=== PATIENT | female | born 1995 | race Caucasian/White ===

== ENCOUNTER 2017-06-04 18:36 | Emergency (ER) | payer OTHER ==
[2011-07-25 07:53] VITALS: BMI 41.1
[2017-06-04 19:50] LABS: BASOPHILS 0.2 % (0-2); EOSINOPHILS 2.2 % (0-7); HEMATOCRIT 45.4 % (36.0-48.0); HEMOGLOBIN 15.3 g/dL (12-16); IMMATURE GRANULOCYTES 0.4 % (0-5); LYMPHOCYTES 16.1 % (15-50); MCH 29.1 pg (26.0-34.0); MCHC 33.7 g/dL (31.0-37.0); MCV 86.5 fL (80.0-100.0); MONOCYTES 4.9 % (2-11); NEUTROPHILS 76.2 % (40-80); PLATELET COUNT 228 10x3/uL (130-400); RBC 5.25 10x6/uL (4.00-5.40); RDW 13.4 % (11.5-14.5); WBC 10.9 10x3/uL (4.8-10.8)
[2017-06-04 20:01] LABS: HCG SERUM POSITIVE (NEGATIVE)
[2017-06-04 20:08] LABS: ALBUMIN 4.2 g/dL (3.4-5.0); ALKALINE PHOSPHATASE 90 U/L (46-116); ALT (SGPT) 35 U/L (10-68); BILIRUBIN - TOTAL 0.23 mg/dL (0.2-1.3); CALC OSMOLALITY 275 mosm/kg (275-300); CARBON DIOXIDE 24.6 mmol/L (21.0-32.0); CHLORIDE - SERUM 102 mmol/L (98-107); CREATININE - SERUM 0.7 mg/dL (0.6-1.3); GLUCOSE 91 mg/dL (74-106); POTASSIUM - SERUM 3.7 mmol/L (3.5-5.1); PROTEIN - SERUM 8.6 g/dL (6.4-8.2); SODIUM 138 mmol/L (136-145); UREA NITROGEN 12 mg/dL (7-18); eGFR NON AFRICAN AMERICAN > 90 mL/min (90-120)
[2017-06-04 21:30] LABS: HCG - QUANTITATIVE (MATERNAL) 0 mIU/mL
[2017-06-04 21:53] LABS: APPEARANCE CLEAR (CLEAR); BILIRUBIN NEGATIVE (NEGATIVE); COLOR STRAW (YELLOW); GLUCOSE NEGATIVE (NEGATIVE); KETONE NEGATIVE (NEGATIVE); NITRITE NEGATIVE (NEGATIVE); PROTEIN NEGATIVE (NEGATIVE); SPECIFIC GRAVITY 1.005 (1.005-1.020); UROBILINOGEN NORMAL (NORMAL)
[2017-06-04 21:56] LABS: BACTERIA FEW /hpf (NONE SEEN); EPITHELIAL CELLS 0-5 /hpf (0-5); RED CELLS - URINE OCC /hpf (0-5); WHITE CELLS - URINE OCC /hpf (0-5)
[2017-06-04 21:57] LABS: TALC POWDER CRYSTALS OCC /hpf (NONE SEEN)
[2017-06-07 03:14] LABS: CHLAMYDIA TRACHOMATIS, NAA Negative (Negative)
== END 2017-06-04 22:30 | disposition home or self-care (01) ==
LOC: D.ER 18:36
PROVIDERS: Family Medicine
DX: N93.9 Abnormal uterine and vaginal bleeding, unspecified (principal); N28.9 Disorder of kidney and ureter, unspecified

== ENCOUNTER → 2017-10-12 20:10 | Outpatient (CLI) | payer OTHER ==
[2011-07-25 07:53] VITALS: BMI 41.1
== END | disposition home or self-care (01) ==
LOC: D.LDO 20:10
DX: O26.892 Other specified pregnancy related conditions, second trimester (principal); Z3A.23 23 weeks gestation of pregnancy; R10.30 Lower abdominal pain, unspecified; R35.0 Frequency of micturition; R30.0 Dysuria

== ENCOUNTER 2018-10-01 16:11 | Inpatient (IN) | payer MEDICAID ==
[~2018-10-01] VITALS: Ht 162.6 cm; Wt 128.8 kg
--- NOTE | ~2018-10-01 | HEMODYNAMI ---
PATIENT:CELIA PACK MEDICAL RECORD: [id number] : [birth year] [facility] [id number] [id number] ADMISSION DATE: 10/01/18 Generatedon:10/03/20189:56 Patient name: CELIA PACK Patient #: [id number] SSN: DO B: 1995 Date of study: 10/03/2018 Page: Of Hemodynamic Procedure Report Patient Data Patient Demographics Procedure consent was obtained First Name: CELIA Gender: Female Last Name: SIRENA : 1995 Patient #: [id number] Age: 23 year(s) Race: Unknown Additional ID: [id number] Contact details [address]: [address] [place] [address] rd State: [place] City: [place] Zip code: [address] Past Medical History Allergies: No known allergies Admission Admission Data Admission Date: 10/01/2018 Admission Time: 22:33 Room #: [id number] Procedure Procedure Types Cath Procedure Peripheral Cath Diagnostic Procedure Nephro Nephrostomy Tubes Procedure Description Procedure Date Procedure Date: 10/03/2018 Procedure Start Time: 9:21 Procedure Staff Name Function Tdedy Gifford MD Performing Physician MARIAM RAHMAN RT Monitor Alberto Minor RT Scrub Yani Gonzalez RN Nurse Rose Larson RN Nurse Sean Juares NIPPING MACHINE OPERATOR Additional personnel Procedure Medications Medication Administration Route Dosage Heparin Flush Bag added to field 2 bags (1000units/500ml NS) Lidocaine 1% added to field 20 Hemodynamics Rest Pre Cath Intra NCS Post Cath Medications Time Medication Route Dose Verified Delivered Reason Notes Effec tiveness by by 8:53:06 Heparin Flush added 2 M Rosemarie Gifford used for Bag to bags MD GOVEA procedure (1000units/500ml field NS) 8:53:19 Lidocaine 1% added 20ml Teddy Gifford for local to vial MD GOVEA anesthetic field Procedure Log Time Note 8:42:46 Alberto Minor RT (R) (CV) sent for patient. Start room use. 8:42:47 Time tracking: Regular hours (M-F 7:00 - 5:00) 8:42:53 Plan of Care:Hemodynamics will remain stable., Cardiac rhythm will remain stable., Comfort level will be maintained., Respiratory function will remain adequate., Patient/ family verbilizes understanding of procedure., Procedure tolerated without complication., Recovers from procedure without complications.. 8:43:01 Patient received from Labor and Delivery to IR Alert and oriented. Transferred to table in Prone position. 8:43:03 Signed procedure consent form obtained from patient. 8:43:07 Warm blankets applied, and ken hugger turned on for patient comfort. 8:43:07 Correct patient and procedure confirmed by team. 8:43:09 ECG and BP/O2 sat monitors applied to patient. 8:43:11 8:48:05 H&P Date Dictated: 10/02/2018 Within 30 days and on chart.. 8:48:19 Pre-procedure instructions explained to patient. 8:48:20 Pre-op teaching completed and patient verbalized understanding. 8:48:22 Family in waiting room. 8:48:26 Patient NPO since Midnight. 8:48:46 Patient allergic to No known allergies 8:48:48 Is the patient allergic to Iodine/contrast media? No. 8:49:30 ----see anethesia note for Pre-sedation anethsthesia assessment.---- 8:49:50 8:50:18 IV patent on arrival in left wrist with 0.9% NaCl at KVO. 8:53:06 Heparin Flush Bag (1000units/500ml NS) 2 bags added to field was administered by Teddy Gifford MD; used for procedure; 8:53:19 Lidocaine 1% 20ml vial added to field was administered by Teddy Gifford MD; for local anesthetic; 9:10:23 Right Thoracic & Lumbar was prepped with chlora-prep and draped in sterile fashion. 9:10:25 Alarms reviewed by R. N. 9:10:26 Sharps counted by scrub and verified by R.N. 9:13:21 Use device set IR Diagnostic 9:13:23 Bag Decanter () opened to sterile field. 9:13:24 Sterile Angiographic Pack opened to sterile field. 9:13:24 Tegaderm 4 x 4 (1626W) opened to sterile field. 9:13:43 KIT, INTRODUCER ACCUSTICK II W/C ([id number]) opened to sterile field. 9:15:45 Physician arrived 9:18:08 --------ALL STOP TIME OUT------ 9:21:23 Lumbar site verified by team. 9:21:30 Procedure started. 9:21:31 Full Disclosure recording started 9:28:10 CHIBA 22 X 15 needle opened to sterile field. 9:37:07 STOPCOCK 3-Way Large Bore ([id number]) opened to sterile field. 9:37:24 DILATOR, VESSEL 8/20 opened to sterile field. 9:37:25 Abscession 8Fr drainage catheter ([id number]) opened to sterile field. 9:39:51 BAG, DRAINAGE EMPTY 600ML W/CHET ([id number]) opened to sterile field. 9:54:33 Procedure ended.(Physican Out) 9:54:46 Sharps counted by scrub and verified by R.N. 9:54:57 Post Lumbar area:clean and dry 9:55:04 Procedure and supply charges have been captured, reviewed, submitted and are correct. 9:55:25 Patient transfered to Labor and Delivery with Bed. 9:56:20 End room use (Document Last) Device Usage Item Name Manufacture Quantity Catalog Hospital Part Current Minima l Lot# / Number Charge Number Stock Stock Serial# Code Bag Decanter Microtek 1 [id number] 5 () Cat [employer] Sterile Cardinal 1 [id number] 5 Angiographic Health Pack Tegaderm 4 x 3M 1 1626W [id number] 765043 [id number] 5 4 (1626W) KIT, [place] 1 [id number] 423431 478904 [id number] 5 INTRODUCER Scientific ACCUSTICK II W/C ([id number]) CHIBA 22 X [facility] 1 [id number] 534708 277344 5 [id number] 15 needle STOPCOCK [facility] 1 [id number] 963765 1211 568061 [id number] 3-Way Large Bore ([id number]) DILATOR, [facility] 1 [id number] 199507 38459 890221 5 VESSEL 10/09 Abscession Angiodynamics 1 [id number] 086167 900682 641437 5 8Fr drainage catheter ([id number]) BAG, [facility] 1 [id number] 612229 882462 981066 5 DRAINAGE EMPTY 600ML W/CHET ([id number]) Signature Audit [place] Stage Time Signature Unsigned Intra-Procedure 10/03/2018 MARIAM RAHMAN RT 9:56:40 AM (R) Signatures Monitor : MARIAM RAHMAN RT Signature : Date : Time : [id number] [facility] [place] [address]
[2018-10-01] MEDS ORDERED: PRENAVITE1 TAB PO (17:34)
[2018-10-01] MEDS ORDERED: PHENERGAN25 M1 PO (17:34)
[2018-10-01 18:15] LABS: BASOPHILS 0.1 % (0-2); EOSINOPHILS 0.1 % (0-7); HEMATOCRIT 38.7 % (36.0-48.0); HEMOGLOBIN 13.7 g/dL (12-16); IMMATURE GRANULOCYTES 0.3 % (0-5); LYMPHOCYTES 7.2 % (15-50); MCH 29.8 pg (26.0-34.0); MCHC 35.4 g/dL (31.0-37.0); MCV 84.1 fL (80.0-100.0); MEAN PLATELET VOLUME 9.9 fL (7.4-10.4); MONOCYTES 6.1 % (2-11); NEUTROPHILS 86.2 % (40-80); PLATELET COUNT 227 10x3/uL (130-400); RDW 13.8 % (11.5-14.5); WBC 15.5 10x3/uL (4.8-10.8)
[2018-10-01 18:29] LABS: ALBUMIN 2.7 g/dL (3.4-5.0); ALKALINE PHOSPHATASE 185 U/L (46-116); ALT (SGPT) 13 U/L (10-68); BILIRUBIN - TOTAL 0.55 mg/dL (0.2-1.3); CALC OSMOLALITY 271 mosm/kg (275-300); CALCIUM 8.6 mg/dL (8.5-10.1); CARBON DIOXIDE 17.1 mmol/L (21.0-32.0); CHLORIDE - SERUM 102 mmol/L (98-107); CREATININE - SERUM 0.7 mg/dL (0.6-1.3); GLUCOSE 93 mg/dL (74-106); POTASSIUM - SERUM 3.3 mmol/L (3.5-5.1); PROTEIN - SERUM 7.3 g/dL (6.4-8.2); SODIUM 137 mmol/L (136-145); UREA NITROGEN 7 mg/dL (7-18); eGFR NON AFRICAN AMERICAN > 90 mL/min (90-120)
[2018-10-01 18:59] LABS: AMYLASE - SERUM 65 U/L (25-115); HCG - QUANTITATIVE (MATERNAL) 28522 mIU/mL; LIPASE 289 U/L (73-393)
--- NOTE | 2018-10-01 19:00 | NUR ---
SBAR BEDSIDE REPORT REC'D FROM LUCRECIA AT THIS TIME.
[2018-10-01 19:04] VITALS: BP 119/69
[2018-10-01 19:10] LABS: APPEARANCE CLEAR (CLEAR); BILIRUBIN NEGATIVE (NEGATIVE); COLOR DK YELLOW (YELLOW); GLUCOSE NEGATIVE (NEGATIVE); KETONE LARGE mg/dL (NEGATIVE); NITRITE NEGATIVE (NEGATIVE); PROTEIN 1+ mg/dL (NEGATIVE)
[2018-10-01 19:11] LABS: RED CELLS - URINE 0-5 /hpf (0-5)
[2018-10-01 19:12] LABS: BACTERIA FEW /hpf (NONE SEEN); MUCUS >1+ /lpf (NONE SEEN)
[2018-10-01 20:33] VITALS: BP 100/55
[2018-10-01 21:18] VITALS: BP 118/61
--- NOTE | 2018-10-01 21:25 | NUR ---
FHT OBTAINED, RLQ, 130BPM. MOTHER AT BEDSIDE. DENIES NEEDS AT THIS TIME.
--- NOTE | 2018-10-01 22:15 | NUR ---
PT AMBULATE TO RESTROOM AT THIS TIME. STANDBY ASSIST PROVIDED. MOM AT BEDSIDE.
[2018-10-01 23:21] VITALS: BP 111/47; Ht 162.6 cm; Wt 128.8 kg
[2018-10-02 07:20] VITALS: BP 104/46
--- NOTE | 2018-10-02 07:20 | NUR ---
ASSESSMENT PER FLOW SHEET, VS OBTAINED, PT C/O OF IV, IV LEFT FRONT WRIST INTACT WITH NO REDNESS OR EDEMA INFUSING VIA PUMP D5NS AT 125 ML/HR, DILAUDID CLINICAL TRIALS NURSE FOR PAIN MANAGEMENT PER MD ORDERS, SEE EMAR, PT REPORTS FLATUS, BM THIS MORNING AND VOIDING WITH NO DIFFICULTY, PT INS TO USE [place] HAT WHEN VOIDING, PT VERBALIZES UNDERSTANDING, ENC TO DRINK PLENTY OF H20, SERVED FRESH H20, POC DISCUSSED WITH PT REGARDING STARTING NEW IV AND CONS WITH DR PLASCENCIA, PT AND PT'S MOM VERBALIZES UNDERSTANDING, DENIES FURTHER NEEDS AT THIS TIME
--- NOTE | 2018-10-02 07:48 | NUR ---
PT BUSINESS PERFORMANCE ADVISOR LIGHT, C/O NAUSEA, ADM ZOFRAN SIVP PER MD ORDERS
--- NOTE | 2018-10-02 07:58 | NUR ---
RACHAEL HERNADEZ IV ACCESS NURSE NOTIFIED REGARDING NEW IV
[2018-10-02 08:01] LABS: BASOPHILS 0.1 % (0-2); EOSINOPHILS 0.5 % (0-7); HEMATOCRIT 31.6 % (36.0-48.0); IMMATURE GRANULOCYTES 0.4 % (0-5); LYMPHOCYTES 9.3 % (15-50); MCH 28.8 pg (26.0-34.0); MCHC 33.5 g/dL (31.0-37.0); MCV 85.9 fL (80.0-100.0); MEAN PLATELET VOLUME 9.7 fL (7.4-10.4); MONOCYTES 7.3 % (2-11); NEUTROPHILS 82.4 % (40-80); PLATELET COUNT 201 10x3/uL (130-400); RBC 3.68 10x6/uL (4.00-5.40); RDW 14.3 % (11.5-14.5); WBC 13.4 10x3/uL (4.8-10.8)
--- NOTE | 2018-10-02 08:03 | NUR ---
THIS RN AND RACHAEL HERNADEZ ACCESS NURSE TO ROOM, RACHAEL HERNADEZ REPORTS SHE STARTED NEW IV IN RIGHT HAND, FIRST ATTEMPT
[2018-10-02 08:06] LABS: HEMOGLOBIN 10.6 g/dL (12-16)
--- NOTE | 2018-10-02 08:25 | NUR ---
THIS RN TO ROOM, IV IN LEFT FRONT WRIST CONVERTED TO SALINE LOCK, FLUIDS STARTED IN RIGHT HAND
[2018-10-02 08:44] LABS: ALKALINE PHOSPHATASE 128 U/L (46-116); BILIRUBIN - TOTAL 0.44 mg/dL (0.2-1.3); CALC OSMOLALITY 278 mosm/kg (275-300); CALCIUM 7.5 mg/dL (8.5-10.1); CHLORIDE - SERUM 107 mmol/L (98-107); CREATININE - SERUM 0.8 mg/dL (0.6-1.3); GLUCOSE 100 mg/dL (74-106); POTASSIUM - SERUM 3.5 mmol/L (3.5-5.1); PROTEIN - SERUM 6.3 g/dL (6.4-8.2); SODIUM 141 mmol/L (136-145); UREA NITROGEN 6 mg/dL (7-18); eGFR NON AFRICAN AMERICAN > 90 mL/min (90-120)
[2018-10-02 08:45] LABS: ALBUMIN 1.9 g/dL (3.4-5.0); ALT (SGPT) 9 U/L (10-68); CARBON DIOXIDE 22.8 mmol/L (21.0-32.0)
--- NOTE | 2018-10-02 08:45 | NUR ---
DR PLASCENCIA'S OFFICE NOTIFIED FOR CONS
--- NOTE | 2018-10-02 08:55 | NUR ---
NEW VIAL OF DILAUDID HUNG FOR HONING MACHINE SET UP OPERATOR PER MD ORDERS, SEE EMAR
--- NOTE | 2018-10-02 09:06 | NUR ---
MANE FREEDMAN IVPB PER MD ORDERS, SEE EMAR, PT DENIES NEEDS AT THIS TIME
--- NOTE | 2018-10-02 09:48 | NUR ---
PT MOSQUITO SPRAYER LIGHT, THIS RN TO ROOM, IV BEEPING, IV IS POSTIONAL, IV INTACT WITH NO REDNESS OR EDEMA, PT INST TO LEAVE HAND SLIGHTLY BENT DOWN ON PILLOW, PT VERBALIZES UNDERSTANDING, RATES PAIN 4/10, PT REPORTS VOIDING, EMPTIED 250 MLS OF DARK CLOUDY URINE FROM [place] MARTINE[place], PT DENIES NEEDS
--- NOTE | 2018-10-02 10:17 | NUR ---
CALLED TO ROOM TO CHECK URINE. PT MOTHER ASSISTED PT TO BATHROOM AND BACK TO BED. VOIDED 100 ML CLEAR MOD YELLOW URINE. LAYING IN BED CRYING, REMINDED TO PUSH SOFT HAT BINDER CONTROLLER PRN FOR PAIN. SIDE RAILS UP X 2, CALL LIGHT IN REACH.
--- NOTE | 2018-10-02 10:20 | NUR ---
PT CALLS TO ROOM C/O MARTINEZ, REQUESTING IV BE MOVED BACK TO OTHER ARM. STATES "I HAVE A HEADACHE AND EVERYTIME THAT BEEPER GOES OFF IT HURTS MY HEAD. IT HAPPENS EVERYTIME I TRY TO SLEEP." WILL CONTACT
--- NOTE | 2018-10-02 10:28 | NUR ---
DR DAVEY PAGED, WAITING ON RETURN CALL. Catrachito MERAZ, PATIENT'S PRIMARY RN NOTIFIED THAT PT DESIRES IV TO BE PLACED BACK IN OTHER ARM.
--- NOTE | 2018-10-02 10:37 | NUR ---
PAGED DR DAVEY TO REPORT PT MARTINEZ NOT RELIEVED BY DILAUDID.
--- NOTE | 2018-10-02 11:10 | NUR ---
PTS MOM AT DIGITAL MANAGER, REPORTS PT WOULD LIKE ICE WATER, PROVIDED 2 CUPS OF ICE WATER AND APPLE JUICE
[2018-10-02 11:19] VITALS: BP 105/48
--- NOTE | 2018-10-02 11:19 | NUR ---
BAG NS HUNG VIA PUMP TO INFUSE AT 125 ML/HR PER MD ORDERS, SEE EMAR, VS OBTAINED, PT DENIES NEEDS AT THIS TIME, PT'S MOM AT BEDSIDE
--- NOTE | 2018-10-02 12:45 | NUR ---
CO NAUSEA- REQUESTING NAUSEA MED. NO EMESIS. NOTED THAT IV IN LT WRIST INFILTRATED. IV FLUIDS RETURNS TO RT WRIST AND ZOFRAN GIVEN.
--- NOTE | 2018-10-02 13:00 | NUR ---
DR DAVEY HERE TO SEE PT.
--- NOTE | 2018-10-02 13:00 | NUR ---
DR DAVEY ON UNIT, ORDERS RECEIVED FOR TYLENOL 650 MG PO Q6H PRN C/O MARTINEZ
--- NOTE | 2018-10-02 13:13 | NUR ---
IV BEEPING, MARICARMEN, NAILING MACHINE OPERATOR AUTOMATIC NURSE STARTED ANOTHER IV IN LEFT HAND DUE TO PT'S COMPLAINTS OF IV IN RIGHT HAND BEEPING AND HURTING, FLUIDS INFUSING IN LEFT HAND AT THIS TIME, ADM TYLENOL PER MD ORDERS, SEE LUCIR, PT REQUESTED AND SERVED L[place]ON SA[place]-SUIATTLE SODA, DENIES FURTHER NEEDS
--- NOTE | 2018-10-02 13:46 | NUR ---
PT PARAPROFESSIONAL AIDE LIGHT, PT REPORTS VOIDING, EMPTIED 250 MLS OF DARK YELLOW URINE, PT PUSHES MAT PUNCHER BUTTON AT THIS TIME, DENIES NEEDS, FAMILY AT BEDSIDE
--- NOTE | 2018-10-02 14:26 | NUR ---
PT ON CELL PHONE, DENIES NEEDS AT THIS TIME, PT'S MOM AT BEDSIDE ON HER CELL PHONE
--- NOTE | 2018-10-02 14:37 | NUR ---
PT LAYING IN BED, HOLDING , VISITING WITH FAMILY, REQUESTED AND SERVED FRESH H20, DENIES NEEDS OR PAIN AT THIS TIME
--- NOTE | 2018-10-02 14:50 | NUR ---
DR PLASCENCIA TO ROOM FOR EVALUATION, TALKS TO PT REGARDING STENT PLACEMENT TODAY, PT VERBALIZES UNDERSTANDING, QUESTIONS ANSWERED PER DR PLASCENCIA
[2018-10-02 15:09] VITALS: BP 115/46
--- NOTE | 2018-10-02 15:09 | NUR ---
SURGICAL CHECKLIST AND LATEX ALLERGY COMPLETED
--- NOTE | 2018-10-02 15:19 | NUR ---
WENT OVER CONSENTS WITH PT, PT VERBALIZES UNDERSTANDING, CONSENTS SIGNED AND WITNESSED
--- NOTE | 2018-10-02 15:33 | NUR ---
MANE FREEDMAN IVPB PER MD ORDERS, SEE EMAR
--- NOTE | 2018-10-02 16:00 | NUR ---
PT IS GOING TO TRY AND GET A LITTLE REST, SCD SLEEVES APPLIED, FAMILY IS GOING TO STEP OUT FOR A FEW MINUTES
--- NOTE | 2018-10-02 16:30 | NUR ---
PT RESTING WITH EYES CLOSED, RESP QUIET, NO DISTRESS NOTED, LEFT UNDISTURBED AT THIS TIME
--- NOTE | 2018-10-02 16:44 | NUR ---
ANESTHESIA TO ROOM
--- NOTE | 2018-10-02 17:10 | NUR ---
PT OCCUPATIONAL SAFETY AND HEALTH MANAGER LIGHT, THIS RN TO ROOM, PT REPORTS THAT SALINE LOCK IN RIGHT HAND IS SWELLING, UPON EVALUATION, SALINE LOCK IN RIGHT HAND IS INTACT WITH NO REDNESS OR EDEMA AT THIS TIME, PT DENIES FURTHER NEEDS, FAMILY IN ROOM
--- NOTE | 2018-10-02 18:14 | NUR ---
PT RESTING WITH EYES CLOSED, RESP QUIET, NO DISTRESS NOTED, LEFT UNDISTURBED AT THIS TIME, S/O AT BEDSIDE
--- NOTE | 2018-10-02 19:12 | NUR ---
SURGERY CALLED TO REQUEST THAT PATIENT RECIEVE HER PRE-OP MEDS. MEDICATION ADMINISTERED PER ORDERS AT THIS TIME.
--- NOTE | 2018-10-02 20:01 | NUR ---
PT TO SURGERY VIA STRETCHER AT THIS TIME
--- NOTE | 2018-10-02 21:30 | NUR ---
PT BACK FROM SURGERY AT THIS TIME. PT VOMITING, EMESIS BAG AND COOL RAG PROVIDED. PT URINATED ON SELF DURING VOMITING. PT AMBULATED WITH ASSISTANCE TO BATHROOM, VOIDED 100ML CLEAR URINE, PT CLEANED SELF UP AND CLEAN GOWN PROVIDED.
--- NOTE | 2018-10-02 21:36 | NUR ---
DR MCGREGOR NOTIFIED OF PT VOMITING, NEW ORDERS NOTED FOR PHENERGAN 25 MG SLOW IVP NOW AND REGLAN 10MG IV Q6HRS.
--- NOTE | 2018-10-02 21:50 | NUR ---
PATIENT AMBULATED BACK TO BED WITH ASSISTANCE
[2018-10-02 21:53] VITALS: BP 121/56
--- NOTE | 2018-10-02 21:53 | NUR ---
VITAL SIGNS TAKEN, PULSE OX 94% ON 2LITERS VIA NC. SIGNIFICANT OTHER AT BEDSIDE. BED LOCKED IN LOW POSITION, SIDE RAILS UPX2, CALL LO AND TRAY TABLE IN REACH.
--- NOTE | 2018-10-02 22:13 | NUR ---
PHENERGAN 25MG SLOW IVP OVER TEN MINUTES PER MD ORDERS FOR NAUSEA.
--- NOTE | 2018-10-02 22:17 | NUR ---
ZOSYN 3.375 IN 50ML D5W HUNG VIA ALARIS PUMP AT THIS TIME PER MD ORDERS, SEE EMAR
--- NOTE | 2018-10-02 22:50 | NUR ---
REGLAN 10MG SLOW IVP PER MD ORDERS. PT O2 SAT AT 95%. DENIES NEEDS AT THIS TIME. WILL CONTINUE TO MONITOR
[2018-10-03] VITALS (11 sets, daily range): BP systolic 94–123; BP diastolic 49–84
--- NOTE | 2018-10-03 00:15 | NUR ---
PT RESTING QUIETLY WITH EYES CLOSED, SIGNIFICANT OTHER REMAINS AT BEDSIDE FOR SUPPORT. NO NEEDS IDENTIFIED, WILL CONTINUE TO MONITOR.
--- NOTE | 2018-10-03 01:15 | NUR ---
PT RESTING QUIETLY WITH EYES CLOSED, NO DISTRESS NOTED. SIGNIFICANT OTHER REMAINS AT BEDSIDE AND STATES THAT HE HELPED THE PT TO THE BATHROOM. 500ML YELLOW URINE NOTED IN URINE HAT. NO FURTHER NEEDS IDENTIFIED, WILL CONTINUE TO MONITOR.
--- NOTE | 2018-10-03 02:15 | NUR ---
PT SLEEPING, EASILY AROUSED TO VERBAL, NO NEEDS IDENTIFIED. NEW BAG 1000ML NS @125ML/HR INFUSING VIA ALARIS PUMP PER MD ORDERS.
--- NOTE | 2018-10-03 04:25 | NUR ---
PATIENT RESTING QUIETLY AT THIS TIME, NEW IN PROCESSING INSTRUCTOR VIAL PLACED IN PUMP AT THIS TIME, SEE EMAR.
--- NOTE | 2018-10-03 04:37 | NUR ---
REGLAN 10MG ADMINISTERED AT THIS TIME PER MD ORDERS. SEE EMAR
--- NOTE | 2018-10-03 04:38 | NUR ---
OXYGEN REMOVED, PULSE OX REMAINS AT 97%.
--- NOTE | 2018-10-03 06:30 | NUR ---
PT SLEEPING WITH EVEN RESPIRATIONS, NO DISTRESS NOTED. SIGNIFICANT OTHER REMAINS AT BEDSIDE FOR SUPPORT. WILL CONTINUE TO MONITOR
--- NOTE | 2018-10-03 06:55 | NUR ---
CALLED TO ROOM BY PATIENT AT THIS TIME TO EMPTY URINE HAT. 900ML BLOODY URINE EMPTIED AT THIS TIME. PT BACK TO BED WITH EYES CLOSED.
--- NOTE | 2018-10-03 07:15 | NUR ---
RECEIVED PT LYING SUPINE IN BED. WAKES UPON VERBAL STIMULATION. VSS. HRRR WITHOUT AUDIBLE MURMUR. BBS CLEAR. BS X 4. ABDOMEN SOFT. NEG HOMANS' SIGN. PPP. MILD NON-PITTING EDEMA NOTED TO ALL EXTREMETIES. PIV OF NS INFUSING AT 125 ML/HR. SITE CLEAR TO LEFT HAND. DILAUDID WELCOME DESK AGENT INFUSING ORDERED. PT STATES PAIN OF "2" ON 0-10 PAIN SCALE. STATES PAIN MED RELIEVING PAIN. SR UP X 2. CALL LIGHT IN REACH.
--- NOTE | 2018-10-03 08:05 | NUR ---
RACHAEL MURILLO FROM INTERVENTIONAL RADIOLOGY DEPT CALLS. STATES DR RENEE TO PERFORM PROCEDURE ON PT AND ORDERS PLACED IN [facility] FOR PREOP/CONSENT. STATES DR RENEE WILL EXPLAIN PROCEDURE TO PT WHEN PT ARRIVES TO DEPT.
--- NOTE | 2018-10-03 08:20 | NUR ---
CONSENTS EXPLAINED TO AND SIGNED BY PT. PT REQUESTS DR RENEE TO SPEAK WITH PT ABOUT PROCEDURE PRIOR TO IT. RADIOLOGY STAFF REAASURRED THIS NURSE THAT WOULD HAPPEN AFTER PT ARRIVES TO RADIOLOGY DEPT.
--- NOTE | 2018-10-03 08:28 | OP ---
PATIENT NAME: CELIA PACK MEDICAL RECORD: [id number] :[birth year] LOCATION:[facility] [id number] ADMISSION DATE:10/01/18 SURGEON: ROSALES PLASCENCIA MD DATE OF OPERATION: 10/02/2018 DATE OF SERVICE: 10/02/2018 SURGEON: Rosales Plascencia MD ANESTHESIA: General anesthesia by Sathya Smyth CRNA. DIAGNOSES: Right pyelonephritis, right hydronephrosis, the patient is 13 weeks . PROCEDURE: Cystoscopy, attempted right ureteral stent placement. FINDINGS: Ultrasound showed a grossly hydronephrotic right kidney without any parenchyma. When I had the Sensor wire into the renal pelvis, pus came out of the kidney. However, there is a ureteral obstruction that prevents me from being able to place a stent up the ureter. The bladder was inflamed with single ureteral orifices bilaterally. No bladder tumors were seen. ESTIMATED BLOOD LOSS: None. CLINICAL HISTORY: This is a 23-year-old female, G2, P1, A0, who is 13 weeks . She was admitted to this hospital after a 1-week history of right flank pain with fevers and nausea and vomiting. She has an ultrasound, which shows gross hydronephrosis on the right kidney with minimal parenchyma. At age 14, she had right-sided pyelonephritis and she was told at [facility] that she had a nonfunctioning right kidney. At the present time, blood and urine cultures have been obtained. She is on IV Rocephin. I am bringing her to the OR to try to attempt a right ureteral stent insertion. DESCRIPTION OF PROCEDURE: The patient was given induction of general anesthesia. She was placed into lithotomy position and prepped and draped. A 21-Greenlandic cystoscope with 30-degree lens was used for visualization. She has single ureteral orifices on each side. An open-ended ureteral catheter was placed into the right ureteral orifice. Through the lumen of the catheter, we inserted the Sensor wire. Once the Sensor wire was up into the renal pelvis, we removed the ureteral catheter, leaving the wire in place. It was immediately apparent that pus was coming out of the kidney around the Sensor wire. I wanted to get a culture of the urine from the renal pelvis. Therefore, over the wire, I inserted the open-ended ureteral catheter; however, at some point in the ureter I encountered a resistance that would not allow the open-ended ureteral catheter to advance any further. Therefore, I had to abandon this attempt. We then removed the ureteral catheter, leaving the wire in place. A 24 cm ureteral stent was then put over the wire. As we were trying to advance the ureteral stent up the ureter, we again encountered the obstruction. The site of the obstruction could not be visualized with ultrasound. I could not advance the stent past this obstruction. We therefore have to abandon any further attempts from below. The wire and the stent were completely removed and the bladder was emptied through the cystoscope sheath and then the scope was removed. I will set her up for interventional radiology to place a nephrostomy tube tomorrow and hopefully they can place an antegrade stent later on. 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 TRANSINT:[id number] Voice Confirmation ID: [id number] DOCUMENT ID: [id number] ROSALES PLASCENCIA MD at 0828 CC: [id number] DICTATION DATE: 10/02/182053 FILLER BLOCK INSERTER REMOVER: 10/02/182240 ADM IN [facility] [address] [id number]
--- NOTE | 2018-10-03 08:38 | NUR ---
STAFF FROM INTERVENTIONAL RADIOLOGY HERE. VISITS WITH PT. PT TO RADIOLOGY DEPT VIA BED PER RADIOLOGY STAFF. SO GOES WITH PT.
[2018-10-03 08:59] LABS: CALC OSMOLALITY 271 mosm/kg (275-300); CALCIUM 7.8 mg/dL (8.5-10.1); CHLORIDE - SERUM 105 mmol/L (98-107); CREATININE - SERUM 0.7 mg/dL (0.6-1.3); GLUCOSE 89 mg/dL (74-106); POTASSIUM - SERUM 3.8 mmol/L (3.5-5.1); SODIUM 138 mmol/L (136-145); UREA NITROGEN 5 mg/dL (7-18); eGFR NON AFRICAN AMERICAN > 90 mL/min (90-120)
[2018-10-03 09:11] LABS: BASOPHILS 0 % (0-2); EOSINOPHILS 0 % (0-7); HEMATOCRIT 33.7 % (36.0-48.0); HEMOGLOBIN 11.6 g/dL (12-16); IMMATURE GRANULOCYTES 0.3 % (0-5); LYMPHOCYTES 5.7 % (15-50); MCH 29.1 pg (26.0-34.0); MCHC 34.4 g/dL (31.0-37.0); MCV 84.5 fL (80.0-100.0); MEAN PLATELET VOLUME 9.4 fL (7.4-10.4); PLATELET COUNT 257 10x3/uL (130-400); RBC 3.99 10x6/uL (4.00-5.40); RDW 13.5 % (11.5-14.5); WBC 11.5 10x3/uL (4.8-10.8)
[2018-10-03 09:17] LABS: APTT 34.8 SECONDS (22.8-39.4); INR 1.09 (0.85-1.17); PROTIME 13.6 SECONDS (11.6-15.0)
[2018-10-03 10:17] LABS: APPEARANCE CLOUDY (CLEAR); BACTERIA MODERATE /hpf (NONE SEEN); BILIRUBIN NEGATIVE (NEGATIVE); COLOR YELLOW (YELLOW); EPITHELIAL CELLS RARE /hpf (0-5); GLUCOSE NEGATIVE (NEGATIVE); KETONE SMALL mg/dL (NEGATIVE); MUCUS <1+ /lpf (NONE SEEN); NITRITE NEGATIVE (NEGATIVE); PROTEIN 2+ mg/dL (NEGATIVE); UROBILINOGEN NORMAL (NORMAL); WHITE CELLS - URINE >50 /hpf (0-5)
--- NOTE | 2018-10-03 10:56 | NUR ---
Miroslava - JUVENAL BEDOYA RN AT BEDSIDE FOR FHT. FHT 130 BPM.
--- NOTE | 2018-10-03 11:18 | NUR ---
RECEIVED PT FROM VIA BED TO ROOM 1278. BED LOCKED AND PLACED IN LOW POSITION. VSS. PT AWAKE. AAO X 3. HRRR WITHOUT AUDIBLE MURMUR. BBS CLEAR. ABDOMEN SOFT. SCDS ON BLE. PUMP ON. NEPHROSTOMY BAG TO GRAVITY WITH THICK, BLOODY LIQUID NOTED IN BAG. DRESSING TO RIGHT FLANK WITHOUT DRAINAGE NOTED. PIV OF NS INFUSING AT 125 ML/HR TO LEFT HAND. SITE CLEAR. DILAUDID BLOOD BANK LABORATORY TECHNOLOGIST RECONNECTED AND RX ORDERED. BLOOD BANK LABORATORY TECHNOLOGIST BUTTON IN PT REACH. CALL LIGHT IN REACH. O2 ON PER N/C AT 2 LITERS. SR UP X 2. CALL LIGHT IN REACH. PT C/O MILD NAUSEA. NO EMESIS NOTED AT THIS TIME. SO AT BEDSIDE.
--- NOTE | 2018-10-03 12:15 | NUR ---
PT STATES HAS URGE TO VOID. PT OOB AND AMB TO BR. STEADY GAIT. VOIDS FREELY. SMALL AMT OF URINE NOTED ON CHUX ON BED. PT STATES HAD ACCIDENT WHILE COUGHING EARLIER. PERICARE DONE PER PT. GOWN CHANGED. BED PADS CHANGED.
--- NOTE | 2018-10-03 12:30 | NUR ---
PT DENIES NAUSEA. ASKING IF PT CAN HAVE LIQUIDS OR FOOD. WILL ASK DR PLASCENCIA.
--- NOTE | 2018-10-03 13:28 | NUR ---
VOICEMAIL LEFT WITH DR PLASCENCIA.
--- NOTE | 2018-10-03 13:29 | NUR ---
DR PLASCENCIA RETURNS CALL. NOTIFIED OF PT REQUEST FOR DIET ORDER. ORDER RECEIVED.
--- NOTE | 2018-10-03 14:30 | NUR ---
PT SITTING UP IN BED. CONSUMING SANDWICH TRAY. DENIES NAUSEA OR NEEDS.
--- NOTE | 2018-10-03 15:28 | NUR ---
PT AMBULATES TO BR. VOIDS 300 ML OF YELLOW URINE. PT BACK TO BED. MEJIA ACTIVITY WELL. FRESH ICE WATER PROVIDED TO PT.
--- NOTE | 2018-10-03 15:45 | NUR ---
DR DAVEY VISITS WITH PT.
--- NOTE | 2018-10-03 16:45 | NUR ---
DILAUDID BRANCH CHIEF DC'D. NORCO 10/325 GIVEN PO ORDERED FOR PT C/O RIGHT FLANK PAIN OF "6" ON 0-10 PAIN SCALE. PT INSTRUCTED ON MED. VERBALIZES UNDERSTANDING.
--- NOTE | 2018-10-03 18:14 | NUR ---
REGLAN 10 MG GIVEN SIVP OVER 2 MINUTES. ZOSYN ALSO UP ORDERED.
--- NOTE | 2018-10-03 19:00 | NUR ---
REPORT RECEIVED FROM HOLLI CANO
--- NOTE | 2018-10-03 19:45 | NUR ---
PATIENT SITTING UP IN BED. STATES PAIN 4 OUT OF 10. ASSESSMENT AND VITAL SIGNS DONE AT THIS TIME. RESPIRATIONS AT EASE. LUNG SOUNDS CLEAR IN ALL SO. HEART REGULAR RATE AND RHYTHM. GRAVID ABDOMEN SOFT AND NONTENDER. BOWEL SOUNDS PRESENT IN ALL QUADRANTS. NEPHROSTOMY TUBE TO R FLANK. DRESSING INTACT. 90 MLS OF THICK BLOODY PURULENT FLUID EMPTIED. EDEMA NOTED TO BLE. SCD'S ON BLE, ON AND WORKING. PATIENT ASSISTED TO BR. AMBULATED WITH STEADY GAIT. VOIDED 150 ML'S OF SUE COLOR URINE. AMBULATED BACK TO BED WITH STEADY GAIT. SCD'S REAPPLIED. IV TO L HAND. IV INFUSING NS@ 125ML/HR. NO REDNESS OR EDEMA NOTED TO SITE. PATIENT DENIES ANY NEEDS OR CONCERNS. BED IN LOWEST POSITION, SIDE RAILS UP X 2, C/L AND WATER WITHIN REACH.
--- NOTE | 2018-10-03 21:00 | NUR ---
PATIENT SITTING UP IN BED WATCHING TV. AT BEDSIDE. DENIES ANY NEEDS OR CONCERNS AT THIS TIME. BED IN LOWEST POSITION, SIDE RAILS UP X 2, C/L AND WATER WITHIN REACH.
--- NOTE | 2018-10-03 22:21 | NUR ---
PATIENT SITTING UP IN BED. STATES PAIN 7 OUT OF 10. PRN PERCOCET 10/325 ADMINISTERED PO AT THIS TIME. PATIENT ASSISTED TO BR. VOIDED 200 CC'S OF YELLOW URINE. PATIENT AMBULATTED BACK TO BED WITH STEADY GAIT. DENIES ANY FURTHER NEEDS. BED IN LOWEST POSITION, SIDE RAILS UP X 2, C/L AND WATER WITHIN REACH.
--- NOTE | 2018-10-04 00:18 | NUR ---
PATIENT LYING QUIETLY IN BED WITH EYES CLOSED. EASILY AROUSED. SCHEDULED REGLAN 10 MG ADMINISTERED SLOW IVP. PATIENT DENIES FURTHER NEEDS. BED IN LOWEST POSITION, SIDE RAILS UP X 2, C/L AND WATER WITHIN REACH.
--- NOTE | 2018-10-04 01:07 | NUR ---
PATIENT LYING QUIETLY IN BED WITH EYES CLOSED. RESPIRATIONS AT EASE. ZOSYN 3.375 GM ADMINISTERED IVPB OVER 30 MINUTES AT THIS TIME. BED IN LOWEST POSITION, SIDE RAILS UP X 2, C/L AND WATER WITHIN REACH.
--- NOTE | 2018-10-04 03:00 | NUR ---
PATIENT LYING QUIETLY IN BED WITH EYES CLOSED. RESPIRATIONS AT EASE. DRAINED 10 ML'S OF BLOODY PURULENT FLUID FROM NEPHROSTOMY BAG. BED IN LOWEST POSITION, SIDE RAILS UP X 2, C/L AND WATER WITHIN REACH.
--- NOTE | 2018-10-04 04:15 | NUR ---
PATIENT LYING IN BED WITH EYES CLOSED. EASILY AROUSED. DENIES PAIN. FHT'S 150'S VIA DOPP;ER. DENIES ANY FURTHER NEEDS. BED IN LOWEST POSITION, SIDE RAILS UP X 2, C/L AND WATER WITHIN REACH.
[2018-10-04 05:24] VITALS: BP 98/54
--- NOTE | 2018-10-04 05:24 | NUR ---
PATIENT LYING QUIETLY IN BED WITH EYES CLOSED. EASILY AROUSED. VITAL SIGNS DONE AT THIS TIME. PATIENT DENIES ANY NEEDS AT THIS TIME. BED IN LOWEST POSITION, SIDE RAILS UP X 2, C/L AND WATER WITHIN REACH.
--- NOTE | 2018-10-04 05:40 | NUR ---
PATIENT SITTING UP IN BED. STATES PAIN 8 OUT OF 10. PRN NORCO 10/325 ADMINISTERED PO. PATIENT AMBULATED TO BATHROOM AND VOIDED 300 ML'S OF DARK YELLOW URINE, PATIEN AMBULATED BACK TO BED WITH STEADY GAIT. DENIES ANY FURTHER NEEDS. BED IN LOWEST POSITION, SIDE RAILS UP X 2, C/L AND WATER WITHIN REACH.
[2018-10-04 06:13] LABS: BASOPHILS 0.1 % (0-2); EOSINOPHILS 0.1 % (0-7); HEMATOCRIT 29.9 % (36.0-48.0); IMMATURE GRANULOCYTES 0.6 % (0-5); LYMPHOCYTES 10.8 % (15-50); MCH 28.6 pg (26.0-34.0); MCHC 33.4 g/dL (31.0-37.0); MCV 85.4 fL (80.0-100.0); MEAN PLATELET VOLUME 9.2 fL (7.4-10.4); NEUTROPHILS 82.4 % (40-80); PLATELET COUNT 234 10x3/uL (130-400); RDW 13.9 % (11.5-14.5); WBC 10.2 10x3/uL (4.8-10.8)
[2018-10-04 06:36] LABS: ALBUMIN 1.6 g/dL (3.4-5.0); ALKALINE PHOSPHATASE 194 U/L (46-116); BILIRUBIN - TOTAL 0.26 mg/dL (0.2-1.3); CALCIUM 7.5 mg/dL (8.5-10.1); CARBON DIOXIDE 22.9 mmol/L (21.0-32.0); CHLORIDE - SERUM 107 mmol/L (98-107); CREATININE - SERUM 0.7 mg/dL (0.6-1.3); POTASSIUM - SERUM 3.5 mmol/L (3.5-5.1); PROTEIN - SERUM 5.8 g/dL (6.4-8.2); SODIUM 140 mmol/L (136-145); eGFR NON AFRICAN AMERICAN > 90 mL/min (90-120)
[2018-10-04 06:38] LABS: ALT (SGPT) 19 U/L (10-68); CALC OSMOLALITY 278 mosm/kg (275-300); GLUCOSE 134 mg/dL (74-106); UREA NITROGEN 7 mg/dL (7-18)
[2018-10-04 07:26] VITALS: BP 105/51
--- NOTE | 2018-10-04 07:26 | NUR ---
RECEIVED PT LYING IN SEMI-VEGA'S POSITION IN BED. WAKES UPON VERBAL STIMULATION. VSS. HRRR WITHOUT AUDIBLE MURMUR. BBS CLEAR. BS X 4. ABDOMEN SOFT. NEPHROSTOMY TUBE TO RIGHT FLANK WITH DRAINAGE BAG TO GRAVITY DRAINING BLOODY LIQUID. DRESSING DRY WITHOUT DRAINAGE. NEG HOMANS' SIGN. PPP. MILD EDEMA NOTED TO BLE. PIV TO LEFT HAND CLEAR. PT STATES PAIN OF "2" TO RIGHT FLANK. STATES PAIN MEDICATION RELIEVING PAIN. SR UP X 2. CALL LIGHT IN REACH.
--- NOTE | 2018-10-04 08:04 | NUR ---
YESSICA HANSEN WITH RADIOLOGY VISITS WITH PT. DISCUSSES POC WITH PT.
--- NOTE | 2018-10-04 08:07 | NUR ---
PT UP TO BR TO VOID.
--- NOTE | 2018-10-04 08:45 | NUR ---
PIV TO LEFT HAND WITH EDEMA NOTED ABOVE SITE. NO REDNESS OR DRAINAGE NOTED. DC'D WITH CATHELON INTACT. PRESSURE BANDAGE TO SITE. PIV RESITED TO RIGHT WRIST WITH 22 GAUGE X 1 VENIPUNCTURE. NS INFUSING AT 125 ML/HR. SITE CLEAR. PT MEJIA WELL.
--- NOTE | 2018-10-04 09:00 | NUR ---
ORDER NOTED FOR NPO STATUS. PT INFORMED AND PT TO START NPO STATUS OF 0900.
--- NOTE | 2018-10-04 10:45 | NUR ---
REGULAR DIET ORDER NOTED PER DR PLASCENCIA. PT INFORMED.
--- NOTE | 2018-10-04 10:47 | NUR ---
DR PLASCENCIA HERE. VISITS WITH PT.
--- NOTE | 2018-10-04 10:56 | NUR ---
DR PLASCENCIA AT [facility]. STATES WILL DISCHARGE PT HOME AND TO RETURN TO HIS CLINIC IN 2 OR 4 WEEKS.
--- NOTE | 2018-10-04 11:20 | NUR ---
DR DAVEY NOTIFIED DR TEMO ENAMORADO WITH DISCHARGE TODAY AND TO FOLLOW UP IN HIS CLINIC IN 2 WEEKS. STATES WILL HAVE TO COME SEE PT AND WRITE RX FOR PT TO GO HOME WITH.
--- NOTE | 2018-10-04 11:48 | NUR ---
PT C/O RIGHT FLANK PAIN OF "8" ON 0-10 PAIN SCALE. NORCO 10/325 GIVEN PO ORDERED. PT INSTRUCTED ON MED. VERBALIZES UNDERSTANDING.
--- NOTE | 2018-10-04 12:17 | NUR ---
JADE CLARK NP WITH RADIOLOGY NOTIFIED OF ORDER FROM DR PLASCENCIA THAT OK WITH DISCHARGE. ORDERS RECEIVED AND STATES WILL CALL IN FLUSHES TO [facility] [address].
--- NOTE | 2018-10-04 12:45 | NUR ---
DR DAVEY ON UNIT. RX PROVIDED FOR AUGMENTIN AND NORCO 5. ORDER RECEIVED TO [facility].
--- NOTE | 2018-10-04 12:53 | NUR ---
NEPHROSTOMY TUBE FLUSHED WITH 10 ML NS. SO INSTRUCTED ON FLUSHING TUBE. VERBALIZES UNDERSTANDING AND WITNESSES DEMONSTRATION. INSTRUCTED ON EMPTYING BAG AND KEEPING LOG OF AMOUNTS.
[2018-10-04] MEDS ORDERED: HYDROCODON-ACE1 EAC7 PO (13:00)
[2018-10-04] MEDS ORDERED: AUGMENTIN 875-11 TAB PO (13:00)
--- NOTE | 2018-10-04 14:00 | NUR ---
PIV DC'D WITH CATHELON INTACT. PRESSURE BANDAGE TO SITE. PT GIVEN DISCHARGE INSTRUCTIONS. PT AND SO GIVEN ALL INSTRUCTIONS. SO INSTRUCTED ON DRESSING CARE AND FLUSHING TUBE WITH SALINE. SO VERBALIZES UNDERSTANDING. ALL SUPPLIES PROVIDED TO PT. PT INSTRUCTED TO DIRECTOR PRESALES SALINE FLUSHES AT [facility] [address].
--- NOTE | 2018-10-04 14:21 | NUR ---
PT READY FOR DISCHARGE. DISCHARGED IN STABLE CONDITION VIA WHEELCHAIR PER AUXILIARY STAFF TO PRIVATE VEHICLE.
== END 2018-10-04 14:21 | disposition home or self-care (01) | DRG 833 ==
LOC: D.ER 16:11 → D.LD 22:33
PROVIDERS: Family Medicine; Radiology Vascular & Interventional Radiology; Urology; ADMIT Obstetrics & Gynecology; ATTEND Obstetrics & Gynecology
PROC: 0TJB8ZZ Inspection of Bladder, Via Natural or Artificial Opening Endoscopic (ICD-10-PCS; principal; 2018-10-02 15:00)
PROC: 0T903ZZ Drainage of Right Kidney, Percutaneous Approach (ICD-10-PCS; 2018-10-03)
DX: O23.01 Infections of kidney in pregnancy, first trimester (principal); Z3A.13 13 weeks gestation of pregnancy; O99.211 Obesity complicating pregnancy, first trimester; E66.01 Morbid (severe) obesity due to excess calories; O99.341 Other mental disorders complicating pregnancy, first trimester

== ENCOUNTER 2018-10-08 13:22 | Emergency (ER) | payer MEDICAID ==
[~2018-10-08] VITALS: Ht 162.6 cm; Wt 129.1 kg
[~2018-10-08 13:22] MED LIST: AUGMENTIN 875-11 TAB PO; HYDROCODON-ACE1 EAC7 PO; PHENERGAN25 M1 PO; PRENAVITE1 TAB PO
[2018-10-08 13:39] VITALS: Ht 162.6 cm; Wt 129.1 kg
[2018-10-08 16:52] VITALS: BP 104/69
== END 2018-10-08 18:22 | disposition home or self-care (01) ==
LOC: D.ER 13:22
DX: T83.89XA Other specified complication of genitourinary prosthetic devices, implants and grafts, initial encounter (principal); O26.891 Other specified pregnancy related conditions, first trimester; Z3A.14 14 weeks gestation of pregnancy

== ENCOUNTER 2018-11-13 05:30 | Outpatient (CLI) | payer MEDICAID ==
[~2018-11-13] VITALS: Ht 162.6 cm; Wt 127.3 kg
[2018-11-13 06:38] LABS: BASOPHILS 0 % (0-2); EOSINOPHILS 1.4 % (0-7); HEMATOCRIT 36.6 % (36.0-48.0); HEMOGLOBIN 12.7 g/dL (12-16); IMMATURE GRANULOCYTES 0.3 % (0-5); LYMPHOCYTES 17.6 % (15-50); MCH 29.7 pg (26.0-34.0); MCHC 34.7 g/dL (31.0-37.0); MCV 85.5 fL (80.0-100.0); MEAN PLATELET VOLUME 9.8 fL (7.4-10.4); MONOCYTES 5.3 % (2-11); NEUTROPHILS 75.4 % (40-80); RBC 4.28 10x6/uL (4.00-5.40); RDW 14.3 % (11.5-14.5); WBC 8.7 10x3/uL (4.8-10.8)
[2018-11-13 06:45] LABS: PLATELET COUNT 165 10x3/uL (130-400)
[2018-11-13 06:51] VITALS: BP 115/71; Ht 162.6 cm; Wt 127.3 kg
[2018-11-13 06:56] LABS: APTT 28.2 SECONDS (22.8-39.4); INR 0.98 (0.85-1.17); PROTIME 12.4 SECONDS (11.6-15.0)
[2018-11-13 06:59] LABS: CALC OSMOLALITY 275 mosm/kg (275-300); CALCIUM 8.2 mg/dL (8.5-10.1); CARBON DIOXIDE 26.5 mmol/L (21.0-32.0); CHLORIDE - SERUM 103 mmol/L (98-107); CREATININE - SERUM 0.6 mg/dL (0.6-1.3); POTASSIUM - SERUM 3.7 mmol/L (3.5-5.1); SODIUM 139 mmol/L (136-145); UREA NITROGEN 10 mg/dL (7-18); eGFR NON AFRICAN AMERICAN > 90 mL/min (90-120)
[2018-11-13 07:01] LABS: GLUCOSE 86 mg/dL (74-106)
--- NOTE | 2018-11-13 10:12 | NUR ---
0945-BEDSIDE ULTRA SOUND AT THIS TIME. 1015-CLEANSE NEPHROSTOMY TUBE SITE WITH HIBICLEANSE, DRESS WITH DRY GUAZE AND TAPE APPLIED. AWAITING RADIOLOGIST CALL TO DISCHARGE PATIENT.
--- NOTE | 2018-11-13 11:31 | NUR ---
1030 READIOLOGY DOCTOR HERE TO TALK TO PT. REFEERAL GOING TO BE SET UP BY DR PLASCENCIA. PT ATE AND DRESSING CHANGED TO NEPHROSTOMY TUBE. SUPPLIES GIVEN TO PT. IV REMOVED AT 4094.
== END 2018-11-13 10:55 | disposition home or self-care (01) ==
LOC: D.RAD 05:30
PROVIDERS: Specialist; ATTEND Urology
DX: O99.89 Other specified diseases and conditions complicating pregnancy, childbirth and the puerperium (principal); N13.30 Unspecified hydronephrosis; Z3A.18 18 weeks gestation of pregnancy

== ENCOUNTER 2019-05-06 10:06 | Emergency (ER) | payer MEDICAID ==
[~2019-05-06] VITALS: Ht 162.6 cm; Wt 125.0 kg
[2019-05-06 10:10] VITALS: Ht 162.6 cm; Wt 125.0 kg
[2019-05-06 10:58] LABS: BACTERIA MODERATE /hpf (NEGATIVE); BILIRUBIN NEGATIVE (NEGATIVE); EPITHELIAL CELLS 0-5 /hpf (0-5); GLUCOSE NEGATIVE (NEGATIVE); KETONE SMALL mg/dL (NEGATIVE); NITRITE NEGATIVE (NEGATIVE); RED CELLS - URINE >50 /hpf (0-5); SPECIFIC GRAVITY 1.015 (1.005-1.020); UROBILINOGEN NORMAL (NORMAL); WHITE CELLS - URINE 0-5 /hpf (NEGATIVE)
[2019-05-06 10:58] LABS: ANION GAP 11.2 mmol/L (8-16); CALCIUM 8.3 mg/dL (8.5-10.1); CARBON DIOXIDE 26.5 mmol/L (21.0-32.0); POTASSIUM - SERUM 3.7 mmol/L (3.5-5.1)
[2019-05-06 11:04] LABS: ALBUMIN 3.5 g/dL (3.4-5.0); BILIRUBIN - TOTAL 0.29 mg/dL (0.2-1.3); HEMATOCRIT 44.6 % (36.0-48.0); HEMOGLOBIN 14.2 g/dL (12-16); LYMPHOCYTES 24.3 % (15-50); MCH 28.1 pg (26.0-34.0); MCHC 31.8 g/dL (31.0-37.0); MCV 88.1 fL (80.0-100.0); MEAN PLATELET VOLUME 10.1 fL (7.4-10.4); NEUTROPHILS 70.4 % (40-80); PROTEIN - SERUM 7.8 g/dL (6.4-8.2); RBC 5.06 10x6/uL (4.00-5.40); RDW 12.5 % (11.5-14.5); WBC 7.2 10x3/uL (4.8-10.8)
[2019-05-06 11:09] LABS: PLATELET COUNT 244 10x3/uL (130-400)
[2019-05-06 13:07] VITALS: BP 114/66
[2019-05-06] MEDS ORDERED: ACETAMINOPHEN500 M1 PO (13:26)
[2019-05-06] MEDS ORDERED: MACROBID100 MG PO (13:26)
[2019-05-06] MEDS ORDERED: KEFLEX500 MG PO (13:26)
[2019-05-06] MEDS ORDERED: IBUPROFEN800 MG PO (13:26)
[2019-05-06] MEDS ORDERED: CYCLOBENZAPRINE10 MG PO (13:26)
== END 2019-05-06 14:28 | disposition home or self-care (01) ==
LOC: D.ER 10:06
PROVIDERS: Family Medicine
DX: R10.9 Unspecified abdominal pain (principal); R30.0 Dysuria; R31.9 Hematuria, unspecified; N99.528 Other complication of incontinent external stoma of urinary tract

== ENCOUNTER 2019-05-08 07:28 | Outpatient (CLI) | payer MEDICAID ==
[~2019-05-08] VITALS: Ht 162.6 cm; Wt 126.4 kg
--- NOTE | ~2019-05-08 | HEMODYNAMI ---
PATIENT:CELIA PACK MEDICAL RECORD: [id number] : [birth year] LOCATION:[facility] ADMISSION DATE: 05/08/19 Generatedon:05/08/201910:31 Patient name: CELIA PACK Patient #: [id number] SSN: DO B: 1995 Date of study: 05/08/2019 Page: Of Hemodynamic Procedure Report Patient Data Patient Demographics Procedure consent was obtained First Name: CELIA Gender: Female Last Name: SIRENA : 1995 Patient #: [id number] Age: 23 year(s) Race: Unknown Additional ID: [id number] Contact details [address]: [address] [place] [address] rd State: [place] City: [place] Zip code: [address] Past Medical History Allergies: No known allergies Admission Admission Data Admission Date: 05/08/2019 Admission Time: 7:28 Procedure Procedure Types Cath Procedure Peripheral Cath Diagnostic Procedure Nephro Nephrostomy Tube Exchange Procedure Description Procedure Date Procedure Date: 05/08/2019 Procedure Start Time: 10:13 Procedure End Time: 10:29 Procedure Staff Name Function Kiara Graham RT Scrub Arslan Douglas MD Performing Physician Rose Larson RN Nurse MARIAM RAHMAN RT Monitor Procedure Data Cath Procedure Fluoroscopy Diagnostic fluoroscopy Total fluoroscopy Time: 0.6 time: 0.6 min min Contrast Material Contrast Material Type Amount (ml) Isovue 300 10 Procedure Medications Medication Administration Route Dosage Versed I.V. 1 mg Fentanyl I.V. 50 mcg Heparin Flush Bag added to field 1 bags (1000units/500ml NS) Lidocaine 1% added to field 20 Versed I.V. 1 mg Fentanyl I.V. 50 mcg Hemodynamics Rest Heart Rate: 70 (bpm) Snapshots Pre Cath Intra NCS Post Cath Vital Signs Time Heart Resp SPO2 etCO2 NIBP (mmHg) Rhythm Pain Sedation Rate (ipm) (%) (mmHg) Status Level (bpm) 9:55:33 68 4 100 31.6 142/82(102) NSR 0 (11) 10(A) , No pain 9:59:45 75 9 100 39.1 134/90(112) NSR 0 (11) 10(A) , No pain 10:03:54 70 31 100 35.3 137/91(116) NSR 0 (11) 9(A) , No pain 10:08:04 69 26 100 36.1 138/95(108) NSR 0 (11) 9(A) , No pain 10:12:14 71 37 100 36.1 131/89(109) NSR 0 (11) 9(A) , No pain 10:16:24 80 18 100 42.9 126/78(95) NSR 0 (11) 8(A) , No pain 10:20:48 78 13 98 42.1 100/70(65) NSR 0 (11) 8(A) , No pain 10:23:20 78 11 98 43.7 127/96(122) NSR 0 (11) 8(A) , No pain 10:27:30 82 12 98 23.3 137/124(128) NSR 0 (11) 8(A) , No pain 10:28:56 73 9 98 44.4 131/84(101) NSR 0 (11) 8(A) , No pain Medications Time Medication Route Dose Verified Delivered Reason Notes Effe ctiveness by by 10:12:59 Versed I.V. 1 mg Arslan Rose for Neo Douglas RN sedation 10:13:20 Fentanyl I.V. 50 Arslan Rose for mcg Neo Douglas RN sedation 10:13:45 Heparin Flush added 1 Arslan Mcdaniels used for Bag to bags Misael Douglas MD procedure (1000units/500ml field GOVEA NS) 10:14:03 Lidocaine 1% added 20ml Arslan Mcdaniels for local to vial Misael Douglas MD anesthetic field GOVEA 10:14:19 Versed I.V. 1 mg Arslan Rose for Neo Douglas RN sedation 10:14:29 Fentanyl I.V. 50 Arslan Rose for mcg Neo Douglas RN sedation Procedure Log Time Note 9:40:07 Alberto Minor RT (R) (CV) sent for patient. Start room use. 9:40:08 Time tracking: Regular hours (M-F 7:00 - 5:00) 9:40:13 Plan of Care:Hemodynamics will remain stable., Cardiac rhythm will remain stable., Comfort level will be maintained., Respiratory function will remain adequate., Patient/ family verbilizes understanding of procedure., Procedure tolerated without complication., Recovers from procedure without complications.. 9:40:18 Patient received from Outpatients to IR Alert and oriented. Tansferred to table in Prone position. 9:40:20 Signed procedure consent form obtained from patient. 9:40:21 Warm blankets applied, and ken hugger turned on for patient comfort. 9:40:22 Correct patient and procedure confirmed by team. 9:40:22 ECG and BP/O2 sat monitors applied to patient. 9:40:23 - 9:40:29 H&P Date Dictated: 05/08/2019 Within 30 days and on chart.. 9:40:31 Pre-procedure instructions explained to patient. 9:40:32 Pre-op teaching completed and patient verbalized understanding. 9:40:34 Family in waiting room. 9:40:36 Patient NPO since Midnight. 9:40:41 Patient allergic to No known allergies 9:40:44 Is the patient allergic to Iodine/contrast media? No. 9:40:48 Is patient on blood thinner?No 9:40:50 Patient diabetic? No. 9:40:52 - 9:40:53 ----Pre-sedation anethsthesia assessment.---- 9:40:58 Previous problem with sedation/anesthesia? No ? 9:41:00 Snore? Yes 9:41:02 Sleep apnea? No 9:41:03 Deviated septum? No 9:41:05 Opens mouth fully? Yes 9:41:06 Sticks out tongue? Yes 9:41:09 Airway obstruction? No ? 9:41:12 Dentures? No ? 9:41:14 - 9:41:27 IV patent on arrival in left hand with 0.9% NaCl at KVO. 9:41:45 Right Renal was prepped with chlora-prep and draped in sterile fashion. 9::46 Sharps counted by scrub and verified by Petty 9:41:46 Alarms reviewed by Ye Gandara 9:41:47 - 9:54:16 Vital chart was started 10:01:14 Baseline sample Acquired. 10:01:16 Full Disclosure recording started 10:01:18 - 10:07:50 Physician arrived 10:08:08 --------ALL STOP TIME OUT------ 10:08:09 Final Timeout: patient, procedure, and site verified with staff and physician. All members of the team are in agreement. 10:08:12 Right renal site verified by team. 10:08:16 Fire Safety Assessment: A--An alcohol-based skin anteseptic being used preoperatively., C--Open oxygen or nitrous oxide is being used. 10:08:41 - 10:08:44 Use device set IR Diagnostic 10:08:45 Sterile Angiographic Pack opened to sterile field. 10:08:45 Bag Decanter (2002S) opened to sterile field. 10:08:46 Tegaderm 4 x 4 (1626W) opened to sterile field. 10:10:19 Procedure started. 10:12:59 Versed 1 mg I.V. was administered by Rose Larson RN; for sedation; Verbal order read back and verified. 10:13:06 BENTSON 145cm wire ([id number]) opened to sterile field. 10:13:06 DILATOR, VESSEL 4/20 opened to sterile field. 10:13:13 Local anesthetic to Right Renal area with Lidocaine 1% by Alberto Minor RT (R) (CV).INITIAL ACCESS ONLY 10:13:20 Fentanyl 50 mcg I.V. was administered by Rose Larson RN; for sedation ; Verbal order read back and verified. 10:13:45 Heparin Flush Bag (1000units/500ml NS) 1 bags added to field was administered by Arslan Douglas MD; used for procedure; Verbal order read back and verified. 10:14:03 Lidocaine 1% 20ml vial added to field was administered by Arslan Douglas MD; for local anesthetic; Verbal order read back and verified. 10:14:19 Versed 1 mg I.V. was administered by Rose Larson RN; for sedation; Verbal order read back and verified. 10:14:29 Fentanyl 50 mcg I.V. was administered by Rose Larson RN; for sedation ; Verbal order read back and verified. 10:15:20 Abscession 8Fr drainage catheter ([id number]) opened to sterile field. 10:16:54 STOPCOCK 3-Way Large Bore ([id number]) opened to sterile field. 10:17:46 SUTURE ETHILON 2-0 BLK MONO FS opened to sterile field. 10:20:20 CONNECTING TUBE FOR DRAINAGE BAG ([id number]) opened to sterile field. 10:20:43 Procedure ended.(Physican Out) 10:20:47 Fluoroscopy time 00.60 minutes. 10:20:52 Dose Area Product 38 mGy/cm. 10:22:03 Contrast amount:Isovue 300 10ml. 10:22:38 Insertion/operative site no bleeding no hematoma. 10:22:47 Post-op/insertion site Right Renal dressed using a 4 x 4 and Tegaderm ans statlock. 10:23:05 Post procedure instruction explained to patient.Patient verbalizes understanding. 10:23:07 Procedure and supply charges have been captured, reviewed, submitted an d are correct. 10:29:33 Vital chart was stopped 10:29:36 Operative report dictated upon procedure completion. 10:29:41 Patient transfered to Outpatients with Bed. 10::43 Full Disclosure recording stopped 10::43 Procedure ended. 10:29:51 End room use (Document Last) Device Usage Item Name Manufacture Quantity Catalog Hospital Part Current Minima l Lot# / Number Charge Number Stock Stock Serial# Code Bag Decanter Microtek 1 [id number] [id number] [id number] 5 () [employer] Sterile Cardinal 1 [id number] [id number] 5 Angiographic Health Pack Tegaderm 4 x 3M 1 1626W [id number] [id number] [id number] 5 4 (1626W) DILATOR, [employer] 1 [id number] 591966 43429 [id number] 5 VESSEL 06/09 BENTSON [employer] 1 [id number] [id number] [id number] 5 145cm wire ([id number]) Abscession Angiodynamics 1 [id number] 315204 013840 503655 5 8Fr drainage catheter ([id number]) [facility] [employer] 1 [id number] 709192 6666 [id number] 5 3-Way Large Bore ([id number]) SUTURE Ethicon 1 [id number] 538358 628929 5 ETHILON 2-0 BLK MONO FS CONNECTING [place] 1 [id number] 439597 886185 [id number] 5 TUBE FOR Scientific DRAINAGE BAG ([id number]) Signature Audit [place] Time Signature Unsigned Intra-Procedure 05/08/2019 MARIAM RAHMAN RT 10:31:36 AM (R) [facility] [address] [place] [address]
[~2019-05-08 07:28] MED LIST changes: +ACETAMINOPHEN500 M1 PO; +CYCLOBENZAPRINE10 MG PO; +IBUPROFEN800 MG PO; +KEFLEX500 MG PO; +MACROBID100 MG PO
[2019-05-08 07:49] LABS: BASOPHILS 0.1 % (0-2); EOSINOPHILS 3.7 % (0-7); HEMATOCRIT 41.8 % (36.0-48.0); HEMOGLOBIN 13.4 g/dL (12-16); IMMATURE GRANULOCYTES 0.1 % (0-5); LYMPHOCYTES 26.1 % (15-50); MCH 28.8 pg (26.0-34.0); MCHC 32.1 g/dL (31.0-37.0); MCV 89.9 fL (80.0-100.0); MEAN PLATELET VOLUME 10.1 fL (7.4-10.4); MONOCYTES 5.9 % (2-11); NEUTROPHILS 64.1 % (40-80); PLATELET COUNT 210 10x3/uL (130-400); RBC 4.65 10x6/uL (4.00-5.40)
[2019-05-08 07:57] LABS: ANION GAP 10.9 mmol/L (8-16); CALCIUM 8.4 mg/dL (8.5-10.1); POTASSIUM - SERUM 3.9 mmol/L (3.5-5.1)
[2019-05-08 08:00] LABS: INR 0.97 (0.85-1.17); PROTIME 12.9 SECONDS (11.6-15.0)
[2019-05-08 08:29] VITALS: BP 134/68; Ht 162.6 cm; Wt 126.4 kg
[2019-05-08 08:47] LABS: HCG URINE NEGATIVE (NEGATIVE)
--- NOTE | 2019-05-08 10:56 | NUR ---
1055 RECIEVED A FINGER FOOD TRAY
== END 2019-05-08 11:43 | disposition home or self-care (01) ==
LOC: D.SP 07:28
PROVIDERS: General Practice; ATTEND Urology
DX: N13.6 Pyonephrosis (principal)